=== PATIENT | female | born 1990 | race Caucasian/White ===

== ENCOUNTER 2016-09-30 10:02 | Emergency (ER) | payer OTHER ==
[2016-09-30] MEDS ORDERED: SODIUM CHLORIDE 0.9% 1,000 ML IV ONE ×2 (12:52→12:53)
[2016-09-30] MEDS ORDERED: KETOROLAC 60 MG/2 ML VIAL IVP STA (12:52)
[2016-09-30] MEDS ORDERED: ONDANSETRON 4 MG/2 ML VIAL IVP STA (12:52)
[2016-09-30] MEDS ORDERED: fentaNYL 100 MCG/2 ML VIAL IVP STA (12:52)
[2016-09-30] MEDS ORDERED: KETOROLAC 60 MG/2 ML VIAL IM STA (13:56)
[2016-09-30] MEDS ORDERED: PROMETHAZINE 25 MG/1 ML VIAL IM STA (13:56)
[2016-09-30] MEDS ORDERED: HYDROmorphone 1 MG/ML SYRINGE IM STA (13:56)
[2016-09-30] MEDS ORDERED: KETOROLAC 60 MG/2 ML VIAL ONE (13:59)
[2016-09-30] MEDS ORDERED: PROMETHAZINE 25 MG/1 ML VIAL ONE (13:59)
[2016-09-30] MEDS ORDERED: HYDROmorphone 1 MG/ML SYRINGE ONE (13:59)
== END 2016-09-30 15:19 | disposition home or self-care (01) ==
DX: R10.11 Right upper quadrant pain (principal); R11.2 Nausea with vomiting, unspecified; R19.7 Diarrhea, unspecified
CPT/HCPCS: 36415; 76705; 80053; 81001; 81025; 83690; 85025; 96372; 99283; J1170